=== PATIENT | female | born 1965 | race African-American/Black ===

== ENCOUNTER 2023-10-02 16:21 | Emergency (ER) | payer OTHER ==
[~2023-10-02] VITALS: Ht 172.7 cm; Wt 77.0 kg
[2023-10-02 16:30] VITALS: O2SAT 98
[2023-10-02] MEDS ORDERED: IBUPROFEN 600MG TABLET PO ONE (16:45)
[2023-10-02] MEDS ORDERED: METHOCARBAMOL 500MG TABLET PO ONE (16:45)
[2023-10-02] MEDS ORDERED: METH-653 MT (18:35)
[2023-10-02] MEDS ORDERED: IBUP-2029 MT (18:35)
[2023-10-02 18:58] VITALS: BP 138/78; PULSE 80; RESP 16; TEMP 98
[2023-10-02] MEDS: METHOCARBAMOL 500MG TABLET PO NR (18:58)
[2023-10-02] MEDS: IBUPROFEN 600MG TABLET PO NR (18:58)
== END 2023-10-02 19:00 | disposition home or self-care (01) ==
LOC: ER 16:21
DX: S33.5XXA Sprain of ligaments of lumbar spine, initial encounter (principal); S20.219A Contusion of unspecified front wall of thorax, initial encounter; I10 Essential (primary) hypertension; V98.8XXA Other specified transport accidents, initial encounter; Y93.89 Activity, other specified; Y92.89 Other specified places as the place of occurrence of the external cause; Y99.8 Other external cause status
CPT/HCPCS: 71045; 72100; 99284; Z7610